=== PATIENT | female | born 1945 | race Caucasian/White ===

== ENCOUNTER 2017-10-30 23:53 | Inpatient (IN) | payer OTHER ==
[~2017-10-30] VITALS: Ht 165.1 cm; Wt 58.1 kg
[2017-10-30] MEDS ORDERED: IPRATROPIUM BROMIDE (0.02%) 0.5MG/2.5ML NEB HHN STA (23:56)
[2017-10-31] VITALS (11 sets, daily range): BP systolic 101–127; BP diastolic 48–66
[2017-10-31] MEDS ORDERED: ASPIRIN 81MG TABLET PO ONE
[2017-10-31] MEDS ORDERED: FUROSEMIDE 100MG/10ML VIAL IVP ONE (00:30)
[2017-10-31] MEDS: ALBUTEROL (0.083%) 2.5MG/3ML NEB HHN SCH ×3 (00:30→01:00)
[2017-10-31 01:24] LABS: CHLORIDE 98 mEq/L (98-107)
[2017-10-31 01:25] LABS: BASOPHILS % 0.5 % (0.0-2.0); EOSINOPHILS % 0.8 % (0.0-5.0); HEMATOCRIT. 40.1 % (36.0-48.0); HEMOGLOBIN. 12.4 g/dL (12.0-16.0); LYMPHOCYTES % 17.2 % (20.0-50.0); MEAN CORPUSCULAR HEMOGLOBIN 26.5 pg (28.0-32.0); MEAN CORPUSCULAR VOLUME 85.4 fL (81.0-99.0); MONOCYTES % 4.4 % (2.0-8.0); NEUTROPHILS % 77.1 % (40.0-76.0); PLATELET 486 x1000/uL (130-400); RED BLOOD CELL COUNT 4.69 mill/uL (4.2-5.4); RED CELL DISTRIBUTION WIDTH 17.2 % (11.6-14.6)
[2017-10-31 01:35] LABS: PARTIAL THROMBOPLASTIN TIME 31.9 sec (23.4-31.0)
[2017-10-31] MEDS ORDERED: SODIUM CHLORIDE 0.9% 1,000 ML IV ONE (01:45)
[2017-10-31 03:19] LABS: CLARITY URINE CLEAR (CLEAR); COLOR URINE YELLOW (YELLOW); KETONES URINE NEGATIVE (NEGATIVE); LEUKOCYTE ESTERASE URINE TRACE (NEGATIVE); NITRITE URINE NEGATIVE (NEGATIVE); OCCULT BLOOD URINE NEGATIVE (NEGATIVE); PROTEIN URINE TRACE (NEGATIVE); SPECIFIC GRAVITY URINE 1.012 (1.005-1.030); UROBILINOGEN URINE 0.2 E.U./dL (0.2-1.0)
[2017-10-31] MEDS ORDERED: ONDANSETRON 4MG ODT PO PRN (04:15)
[2017-10-31] MEDS ORDERED: DIPHENHYDRAMINE 50MG/ML VIAL IV PRN (04:15)
[2017-10-31] MEDS ORDERED: ACETAMINOPHEN 650MG SUPP PR PRN (04:15)
[2017-10-31] MEDS ORDERED: DEXTROSE 50% WATER 50ML SYRINGE IV PRN (04:15)
[2017-10-31] MEDS ORDERED: PIPERACILLIN/TAZ 3.375G PREMIX 50 ML IV SCH (04:45)
[2017-10-31] MEDS ORDERED: METO-539 PO (05:17)
[2017-10-31] MEDS ORDERED: LOSA50TA20 PO (05:18)
[2017-10-31] MEDS ORDERED: CHLO25TA2 PO (05:18)
[2017-10-31] MEDS ORDERED: HYDR-4135 PO (05:20)
[2017-10-31] MEDS ORDERED: METF10004 PO (05:21)
[2017-10-31] MEDS ORDERED: OMEP20CA10 PO (05:22)
[2017-10-31] MEDS ORDERED: SIMV20TA6 PO (05:22)
[2017-10-31] MEDS ORDERED: ASPI-1158 PO (05:23)
[2017-10-31] MEDS ORDERED: CHOL50004 PO (05:24)
[2017-10-31] MEDS ORDERED: CYAN100096 PO (05:25)
[2017-10-31] MEDS ORDERED: [UNRECOGNIZED DRUG - OTHER] PO (05:30)
[2017-10-31] MEDS ORDERED: CALC/MAG/ZINC PO (05:31)
[2017-10-31] MEDS ORDERED: FLUT9.9S BOTHNSTRLS (05:35)
[2017-10-31] MEDS ORDERED: METHYLPREDNISOLONE SOD SUCC 125 MG/2 ML VIAL IV NR (05:45)
[2017-10-31] MEDS: BLOOD SUGAR DIAGNOSTIC STRIP TEST SCH ×4 (06:14→20:10)
[2017-10-31] MEDS: OMEPRAZOLE 20MG CAPSULE EXTENDED RELEASE PO SCH ×2 (06:25→20:09)
[2017-10-31] MEDS: PIPERACILLIN/TAZ 3.375G PREMIX 50 ML IV SCH ×3 (06:25→20:09)
[2017-10-31] MEDS ORDERED: VANCOMYCIN 1 G PREMIX 200 ML IV NR (07:00)
[2017-10-31] MEDS: INSULIN LISPRO 100 UNITS/ML SUBCUT SCH ×4 (07:20→20:11)
[2017-10-31] MEDS ORDERED: PRED-276 PO (07:45)
[2017-10-31] MEDS: LOSARTAN POTASSIUM 100 MG TABLET PO SCH (08:09)
[2017-10-31] MEDS: FUROSEMIDE 40MG/4ML VIAL IVP SCH (08:09)
[2017-10-31] MEDS: METOPROLOL TARTRATE 50MG TABLET PO SCH ×2 (08:09→20:10)
[2017-10-31] MEDS: ENOXAPARIN 40MG/0.4ML SYR SUBCUT SCH (10:30)
[2017-10-31] MEDS ORDERED: MYCO500T PO (10:39)
[2017-10-31 11:31] LABS: BG BASE EXCESS -1.5 mmol/L (-2.0-2.0); BG BILEVEL POS AIRWAY PRESSURE 15/5; BG CARBOXYHEMOGLOBIN 0.2 % (0.5-1.5); BG DEOXYHEMOGLOBIN 0.2 % (0.0-5.0); BG FRACTION INSPIRED OXYGEN 100; BG HCO3 ACT 21.5 mmol/L (22.0-26.0); BG METHEMOGLOBIN 0.3 % (0.0-1.5); BG OXYGEN SATURATION 99.8 % (92.0-98.5); BG OXYHEMOGLOBIN 99.3 % (94.0-97.0); BG PCO2 30.5 mmHg (35.0-45.0); BG PH 7.465 (7.350-7.450); BG PO2 497.7 mmHg (75.0-100.0); BG PRESSURE SUPPORT 10; BG SAMPLE SITE LEFT RADIAL; BG TOTAL HEMOGLOBIN 11.7 g/dL (12.0-18.0); BG VENT MODE MASK - BIPAP; BG VENT RATE 16 set
[2017-10-31] MEDS ORDERED: IPRATROPIUM/ALBUTEROL 0.5-3(2.5)MG/3ML NEB HHN PRN (11:45)
[2017-10-31] MEDS: FLUTICASONE PROPIONATE 50MCG/SPRAY BOTTLE BOTHNSTRLS SCH (12:22)
[2017-10-31] MEDS: BUDESONIDE 0.5MG/2ML NEB HHN SCH ×2 (12:45→20:45)
[2017-10-31] MEDS: IPRATROPIUM/ALBUTEROL 0.5-3(2.5)MG/3ML NEB HHN SCH ×3 (12:45→20:46)
[2017-10-31] MEDS ORDERED: VANCOMYCIN 500 MG PREMIX 100 ML IV SCH (18:00)
[2017-10-31] MEDS: VANCOMYCIN 750 MG PREMIX 150 ML IV SCH (21:42)
[2017-11-01] VITALS (12 sets, daily range): BP systolic 93–116; BP diastolic 40–62
[2017-11-01] MEDS: IPRATROPIUM/ALBUTEROL 0.5-3(2.5)MG/3ML NEB HHN SCH ×6 (00:15→20:40)
[2017-11-01] MEDS: PIPERACILLIN/TAZ 3.375G PREMIX 50 ML IV SCH ×4 (02:42→20:38)
[2017-11-01] MEDS: BLOOD SUGAR DIAGNOSTIC STRIP TEST SCH ×4 (06:31→20:38)
[2017-11-01] MEDS: INSULIN LISPRO 100 UNITS/ML SUBCUT SCH ×4 (06:45→20:38)
[2017-11-01] MEDS: OMEPRAZOLE 20MG CAPSULE EXTENDED RELEASE PO SCH (07:14)
[2017-11-01] MEDS: METOPROLOL TARTRATE 50MG TABLET PO SCH ×2 (08:11→20:38)
[2017-11-01] MEDS: LOSARTAN POTASSIUM 100 MG TABLET PO SCH (08:11)
[2017-11-01] MEDS: FLUTICASONE PROPIONATE 50MCG/SPRAY BOTTLE BOTHNSTRLS SCH (08:12)
[2017-11-01] MEDS: FUROSEMIDE 40MG/4ML VIAL IVP SCH (08:12)
[2017-11-01] MEDS: ENOXAPARIN 40MG/0.4ML SYR SUBCUT SCH (08:12)
[2017-11-01] MEDS: BUDESONIDE 0.5MG/2ML NEB HHN SCH ×2 (08:30→20:39)
[2017-11-01] MEDS: VANCOMYCIN 750 MG PREMIX 150 ML IV SCH ×2 (08:43→21:49)
[2017-11-01 12:32] LABS: BASOPHILS % 0.3 % (0.0-2.0); EOSINOPHILS % 0.8 % (0.0-5.0); HEMATOCRIT. 29.3 % (36.0-48.0); HEMOGLOBIN. 9.6 g/dL (12.0-16.0); LYMPHOCYTES % 13.4 % (20.0-50.0); MEAN CORPUSCULAR HEMOGLOBIN 27.1 pg (28.0-32.0); MEAN CORPUSCULAR VOLUME 82.4 fL (81.0-99.0); MEAN PLATELET VOLUME 7.6 fl (7.4-10.4); NEUTROPHILS % 77.5 % (40.0-76.0); PLATELET 338 x1000/uL (130-400); RED BLOOD CELL COUNT 3.55 mill/uL (4.2-5.4); RED CELL DISTRIBUTION WIDTH 16.5 % (11.6-14.6)
[2017-11-01] MEDS ORDERED: POTASSIUM CHLORIDE 20MEQ TABLET SR PO NR (13:30)
[2017-11-02] MEDS ORDERED: FAMOTIDINE 20MG TABLET PO SCH (09:00)
== END 2017-11-01 22:35 | disposition short-term general hospital (02) | DRG 189 ==
LOC: ER 10-31 00:31 → 3WST 10-31 01:40 → EDBEDREQSVC 10-31 01:43 → EDBEDREQTM 10-31 01:43 → EDBEDREQ 10-31 01:43 → ENRESERV 10-31 01:50
PROVIDERS: ADMIT Internal Medicine; ATTEND Internal Medicine
PROC: 5A09357 Assistance with Respiratory Ventilation, Less than 24 Consecutive Hours, Continuous Positive Airway Pressure (ICD-10-PCS; 2017-10-31)
PROC: 5A09357 Assistance with Respiratory Ventilation, Less than 24 Consecutive Hours, Continuous Positive Airway Pressure (ICD-10-PCS; principal; 2017-11-01)
DX: J96.00 Acute respiratory failure, unspecified whether with hypoxia or hypercapnia (principal); J84.9 Interstitial pulmonary disease, unspecified; R65.10 Systemic inflammatory response syndrome (SIRS) of non-infectious origin without acute organ dysfunction; E11.9 Type 2 diabetes mellitus without complications; E78.00 Pure hypercholesterolemia, unspecified; E87.70 Fluid overload, unspecified; I11.0 Hypertensive heart disease with heart failure; I50.9 Heart failure, unspecified; Z83.3 Family history of diabetes mellitus; Z85.3 Personal history of malignant neoplasm of breast; Z90.12 Acquired absence of left breast and nipple; Z90.710 Acquired absence of both cervix and uterus; Z99.81 Dependence on supplemental oxygen; Z79.82 Long term (current) use of aspirin; Z79.899 Other long term (current) drug therapy
CPT/HCPCS: 36415; 36600; 71045; 80048; 80053; 81003; 82375; 82805; 82962; 83605; 83880; 84484; 85025; 85610; 85730; 87040; 93005; 93970; 94640; 94660; 96374; 99291; J1650; J1815; J1940; J2543; J2930; J3370; J7030; J7611; J7620; J7626

== ENCOUNTER 2017-12-05 05:59 | Inpatient (IN) | payer OTHER ==
[2017-12-05] VITALS (9 sets, daily range): BP systolic 93–139; BP diastolic 55–74
[~2017-12-05] VITALS: Ht 160 cm; Wt 55.3 kg
[~2017-12-05 05:59] MED LIST: ASPI-1158 PO; CALC/MAG/ZINC PO; CHLO25TA2 PO; CHOL50004 PO; CYAN100096 PO; FLUT9.9S BOTHNSTRLS; HYDR-4135 PO; LOSA50TA20 PO; METF10004 PO; METO-539 PO; MYCO500T PO; OMEP20CA10 PO; PRED-276 PO; SIMV20TA6 PO; [UNRECOGNIZED DRUG - OTHER] PO
[2017-12-05] MEDS ORDERED: NITROGLYCERIN OINT 1GM/INCH UDPKT TD ONE (06:30)
[2017-12-05] MEDS ORDERED: NITROGLYCERIN 0.4MG TABLET SL SL PRN (06:30)
[2017-12-05] MEDS ORDERED: FUROSEMIDE 100MG/10ML VIAL IVP ONE (06:30)
[2017-12-05 06:34] LABS: BG BASE EXCESS -10.5 mmol/L (-2.0-2.0); BG CARBOXYHEMOGLOBIN 0.2 % (0.5-1.5); BG DEOXYHEMOGLOBIN 1.1 % (0.0-5.0); BG FRACTION INSPIRED OXYGEN 100; BG HCO3 ACT 15.7 mmol/L (22.0-26.0); BG METHEMOGLOBIN 0.2 % (0.0-1.5); BG OXYGEN SATURATION 98.9 % (92.0-98.5); BG OXYHEMOGLOBIN 98.5 % (94.0-97.0); BG PH 7.257 (7.350-7.450); BG PO2 198.8 mmHg (75.0-100.0); BG SAMPLE SITE LEFT RADIAL; BG TOTAL HEMOGLOBIN 13.5 g/dL (12.0-18.0); BG VENT MODE MASK - BIPAP
[2017-12-05 06:55] LABS: EOSINOPHILS % 2.1 % (0.0-5.0); HEMATOCRIT. 41.3 % (36.0-48.0); HEMOGLOBIN. 12.7 g/dL (12.0-16.0); LYMPHOCYTES % 41.7 % (20.0-50.0); MEAN CORPUSCULAR HEMOGLOBIN 26.5 pg (28.0-32.0); MEAN CORPUSCULAR VOLUME 85.9 fL (81.0-99.0); MEAN PLATELET VOLUME 8.7 fl (7.4-10.4); MONOCYTES % 3.7 % (2.0-8.0); NEUTROPHILS % 51.5 % (40.0-76.0); PLATELET 423 x1000/uL (130-400); RED BLOOD CELL COUNT 4.81 mill/uL (4.2-5.4); RED CELL DISTRIBUTION WIDTH 17.7 % (11.6-14.6)
[2017-12-05] MEDS ORDERED: LEVOFLOXACIN 750MG PREMIX 150 ML IV ONE (07:00)
[2017-12-05 07:03] LABS: CHLORIDE 100 mEq/L (98-107)
[2017-12-05] MEDS ORDERED: PIPERACILLIN/TAZ 3.375G PREMIX 50 ML IV ONE (07:45)
[2017-12-05] MEDS ORDERED: VANCOMYCIN 1 G PREMIX 200 ML IV ONE (07:45)
[2017-12-05 08:39] LABS: T4 FREE 0.91 ng/dL (0.76-1.46)
[2017-12-05] MEDS ORDERED: LEVOFLOXACIN 500MG PREMIX 100 ML IV SCH (08:45)
[2017-12-05] MEDS ORDERED: CLONIDINE 0.1MG TABLET PO PRN (08:45)
[2017-12-05] MEDS ORDERED: IPRATROPIUM/ALBUTEROL 0.5-3(2.5)MG/3ML NEB INH PRN (08:45)
[2017-12-05] MEDS ORDERED: LORAZEPAM 2MG/ML CPJ IV PRN (08:45)
[2017-12-05] MEDS ORDERED: GUAIFENESIN 200MG/10ML SUGAR FREE UDC PO PRN (08:45)
[2017-12-05] MEDS ORDERED: MORPHINE SULFATE 4 MG/ML CPJ (NOT FOR IM USE) IV PRN (08:45)
[2017-12-05] MEDS ORDERED: MAGNESIUM/ALUMINUM HYDROXIDE/SIMETHICONE 30ML UDC PO PRN (08:45)
[2017-12-05] MEDS ORDERED: ACETAMINOPHEN 325MG TABLET PO PRN (08:45)
[2017-12-05] MEDS ORDERED: ONDANSETRON HCL 4MG/2ML INJ IV PRN (08:45)
[2017-12-05] MEDS ORDERED: DIPHENHYDRAMINE 50MG/ML VIAL IV PRN (08:45)
[2017-12-05] MEDS ORDERED: HYDROCODONE/ACETAMINOPHEN 5/325MG TABLET PO PRN (08:45)
[2017-12-05] MEDS ORDERED: DOCUSATE SODIUM 100MG CAPSULE PO PRN (08:45)
[2017-12-05] MEDS ORDERED: NA PHOS,M-B/NA PHOS,DI-BA ENEMA 118ML PR PRN (08:45)
[2017-12-05] MEDS ORDERED: CEFEPIME 2,000 MG in DEXT 5% WATER 100 ML IV SCH (09:45)
[2017-12-05] MEDS ORDERED: METRONIDAZOLE 500 MG PREMIX 100 ML IV SCH (09:45)
[2017-12-05] MEDS: METHYLPREDNISOLONE SOD SUCC 40 MG/ML VIAL IV SCH ×2 (11:41→18:13)
[2017-12-05] MEDS: FUROSEMIDE 40MG/4ML VIAL IV SCH (11:41)
[2017-12-05] MEDS: ENOXAPARIN 40MG/0.4ML SYR SUBCUT SCH (11:41)
[2017-12-05] MEDS: ASPIRIN 81MG EC TABLET PO SCH (11:41)
[2017-12-05 14:34] LABS: BG BASE EXCESS 3.5 mmol/L (-2.0-2.0); BG CARBOXYHEMOGLOBIN 0.4 % (0.5-1.5); BG DEOXYHEMOGLOBIN 6.7 % (0.0-5.0); BG FRACTION INSPIRED OXYGEN 40; BG HCO3 ACT 26.8 mmol/L (22.0-26.0); BG METHEMOGLOBIN 0.2 % (0.0-1.5); BG OXYGEN SATURATION 93.3 % (92.0-98.5); BG OXYHEMOGLOBIN 92.7 % (94.0-97.0); BG PCO2 36.1 mmHg (35.0-45.0); BG PH 7.488 (7.350-7.450); BG PO2 65.3 mmHg (75.0-100.0); BG SAMPLE SITE RIGHT BRACHIAL; BG TOTAL HEMOGLOBIN 12.8 g/dL (12.0-18.0); BG VENT MODE NASAL CANNULA
[2017-12-05 16:02] LABS: CREATINE KINASE MB FRACTION 3.3 ng/mL (0.5-3.6)
[2017-12-05] MEDS: IPRATROPIUM/ALBUTEROL 0.5-3(2.5)MG/3ML NEB HHN SCH ×2 (16:30→21:11)
[2017-12-05] MEDS: PIPERACILLIN/TAZ 3.375G PREMIX 50 ML IV SCH (16:53)
[2017-12-05] MEDS ORDERED: DEXTROSE 50% WATER 50ML SYRINGE IV PRN (18:30)
[2017-12-05] MEDS: CLOPIDOGREL 75MG TABLET PO SCH (20:36)
[2017-12-05] MEDS: BLOOD SUGAR DIAGNOSTIC STRIP TEST SCH (21:20)
[2017-12-05] MEDS: INSULIN LISPRO 100 UNITS/ML SUBCUT SCH (21:24)
[2017-12-06] VITALS (19 sets, daily range): BP systolic 97–139; BP diastolic 44–76
[2017-12-06] MEDS: PIPERACILLIN/TAZ 3.375G PREMIX 50 ML IV SCH ×3 (00:22→17:51)
[2017-12-06 00:55] LABS: CREATINE KINASE MB FRACTION 1.7 ng/mL (0.5-3.6)
[2017-12-06] MEDS: IPRATROPIUM/ALBUTEROL 0.5-3(2.5)MG/3ML NEB HHN SCH ×6 (01:09→21:10)
[2017-12-06] MEDS: METHYLPREDNISOLONE SOD SUCC 125 MG/2 ML VIAL IV SCH ×2 (02:24→11:16)
[2017-12-06] MEDS: VANCOMYCIN 1 G PREMIX 200 ML IV SCH ×2 (02:26→20:41)
[2017-12-06] MEDS: BLOOD SUGAR DIAGNOSTIC STRIP TEST SCH ×4 (06:18→20:46)
[2017-12-06 06:22] LABS: BASOPHILS % 0.1 % (0.0-2.0); HEMATOCRIT. 31.5 % (36.0-48.0); HEMOGLOBIN. 10.5 g/dL (12.0-16.0); LYMPHOCYTES % 9.2 % (20.0-50.0); MEAN CORPUSCULAR HEMOGLOBIN 27.1 pg (28.0-32.0); MEAN CORPUSCULAR VOLUME 81.6 fL (81.0-99.0); MEAN PLATELET VOLUME 8.3 fl (7.4-10.4); MONOCYTES % 1.3 % (2.0-8.0); NEUTROPHILS % 89.4 % (40.0-76.0); PLATELET 292 x1000/uL (130-400); RED BLOOD CELL COUNT 3.86 mill/uL (4.2-5.4); RED CELL DISTRIBUTION WIDTH 16.6 % (11.6-14.6)
[2017-12-06 06:42] LABS: CHLORIDE 100 mEq/L (98-107)
[2017-12-06 06:49] LABS: LDL CHOLESTEROL 105 mg/dL (5-100)
[2017-12-06 06:50] LABS: CREATINE KINASE 28 IU/L (26-192); HDL CHOLESTEROL 53 mg/dL (40-59)
[2017-12-06 06:53] LABS: CREATINE KINASE MB FRACTION < 1.0 ng/mL (0.5-3.6)
[2017-12-06] MEDS ORDERED: REGADENOSON 0.4 MG/5 ML IV SCH (08:15)
[2017-12-06] MEDS: FUROSEMIDE 40MG/4ML VIAL IV SCH (08:28)
[2017-12-06] MEDS: CLOPIDOGREL 75MG TABLET PO SCH (08:28)
[2017-12-06] MEDS: ASPIRIN 81MG EC TABLET PO SCH (08:28)
[2017-12-06] MEDS: INSULIN LISPRO 100 UNITS/ML SUBCUT SCH ×4 (08:28→22:12)
[2017-12-06 08:42] LABS: CLARITY URINE CLOUDY (CLEAR); COLOR URINE YELLOW (YELLOW); PROTEIN URINE NEGATIVE (NEGATIVE)
[2017-12-06 08:43] LABS: KETONES URINE TRACE (NEGATIVE); LEUKOCYTE ESTERASE URINE NEGATIVE (NEGATIVE); NITRITE URINE NEGATIVE (NEGATIVE); OCCULT BLOOD URINE NEGATIVE (NEGATIVE); UROBILINOGEN URINE 0.2 E.U./dL (0.2-1.0)
[2017-12-06] MEDS ORDERED: REGADENOSON 0.4 MG/5 ML IV ONE (09:31)
[2017-12-06] MEDS: ENOXAPARIN 40MG/0.4ML SYR SUBCUT SCH (11:15)
[2017-12-06] MEDS: METHYLPREDNISOLONE SOD SUCC 40 MG/ML VIAL IV SCH (20:40)
[2017-12-06] MEDS ORDERED: IOHEXOL-350 100 ML BOTTLE ONE (22:03)
[2017-12-07] VITALS (15 sets, daily range): BP systolic 121–154; BP diastolic 59–78
[2017-12-07] MEDS: IPRATROPIUM/ALBUTEROL 0.5-3(2.5)MG/3ML NEB HHN SCH ×5 (01:38→15:29)
[2017-12-07] MEDS: PIPERACILLIN/TAZ 3.375G PREMIX 50 ML IV SCH ×3 (02:26→17:59)
[2017-12-07] MEDS: BLOOD SUGAR DIAGNOSTIC STRIP TEST SCH ×4 (05:38→20:21)
[2017-12-07] MEDS: CLOPIDOGREL 75MG TABLET PO SCH (08:11)
[2017-12-07] MEDS: FUROSEMIDE 40MG/4ML VIAL IV SCH (08:11)
[2017-12-07] MEDS: METHYLPREDNISOLONE SOD SUCC 40 MG/ML VIAL IV SCH ×2 (08:11→20:21)
[2017-12-07] MEDS: ASPIRIN 81MG EC TABLET PO SCH (08:11)
[2017-12-07] MEDS: INSULIN LISPRO 100 UNITS/ML SUBCUT SCH ×4 (08:12→20:34)
[2017-12-07] MEDS: ENOXAPARIN 40MG/0.4ML SYR SUBCUT SCH (10:33)
[2017-12-07] MEDS ORDERED: VANCOMYCIN 500 MG PREMIX 100 ML IV SCH (15:00)
[2017-12-07] MEDS ORDERED: LOSARTAN POTASSIUM 50 MG TABLET PO SCH (17:00)
[2017-12-07] MEDS ORDERED: CARVEDILOL 3.125 MG TABLET PO SCH (21:00)
== END 2017-12-07 20:56 | disposition short-term general hospital (02) | DRG 871 ==
LOC: ER 05:59 → 3WST 07:15 → EDBEDREQ 07:40 → EDBEDREQTM 07:40 → ENRESERV 09:13
PROVIDERS: ADMIT Internal Medicine; ATTEND Internal Medicine
DX: A41.9 Sepsis, unspecified organism (principal); J69.0 Pneumonitis due to inhalation of food and vomit; J96.01 Acute respiratory failure with hypoxia; I50.43 Acute on chronic combined systolic (congestive) and diastolic (congestive) heart failure; I42.9 Cardiomyopathy, unspecified; J44.9 Chronic obstructive pulmonary disease, unspecified; D64.9 Anemia, unspecified; E78.1 Pure hyperglyceridemia; R74.8 Abnormal levels of other serum enzymes; E11.65 Type 2 diabetes mellitus with hyperglycemia; E78.00 Pure hypercholesterolemia, unspecified; E78.5 Hyperlipidemia, unspecified; I11.0 Hypertensive heart disease with heart failure; Z79.84 Long term (current) use of oral hypoglycemic drugs; Z85.3 Personal history of malignant neoplasm of breast; Z90.12 Acquired absence of left breast and nipple; Z90.710 Acquired absence of both cervix and uterus; Z92.21 Personal history of antineoplastic chemotherapy; Z92.3 Personal history of irradiation; Z99.81 Dependence on supplemental oxygen; Z88.8 Allergy status to other drugs, medicaments and biological substances; Z79.82 Long term (current) use of aspirin; Z79.899 Other long term (current) drug therapy
CPT/HCPCS: 36415; 36600; 71045; 71275; 78452; 80048; 80053; 80061; 80202; 81003; 82375; 82550; 82553; 82805; 82962; 83036; 83605; 83880; 84439; 84443; 84484; 85025; 85379; 85610; 87040; 87086; 93005; 93017; 93306; 93970; 94640; 94660; 96365; 96368; 96375; 99291; A9500; J1650; J1815; J1940; J1956; J2543; J2785; J2920; J2930; J3370; J7050; J7620; Q9967